=== PATIENT | female | born 1980 | race Caucasian/White ===

== ENCOUNTER 2018-04-26 08:36 | Emergency (ER) | payer OTHER ==
[~2018-04-26] VITALS: Ht 170.2 cm; Wt 104.0 kg
[2018-04-26 08:40] VITALS: BP 114/79
--- NOTE | 2018-04-26 11:03 | NUR ---
FROM LOBBY TO ROOM
--- NOTE | 2018-04-26 11:15 | NUR ---
PT TO ED WITH R ANKLE SWELLING AFTER ROLLING ANKLE THIS AM. NEURO INTACT. CAN WIGGLE TOES AND MOVE FOOT. PAIN WITH MOVEMENT. CONNECTED TO MONITORS. VSS. MOTHER AT BEDSIDE. PT RESTING IN BED. AWAITING MD ASSESSMENT.
[2018-04-26] MEDS ORDERED: KETOROLAC 30 MG/1 ML ONE (11:34)
[2018-04-26] MEDS ORDERED: ACETAMINOPHEN 500 MG TABLET ONE (11:35)
[2018-04-26] MEDS ORDERED: ACETAMINOPHEN 500 MG TABLET PO ONE (12:00)
[2018-04-26] MEDS ORDERED: KETOROLAC 30 MG/1 ML IM ONE (12:00)
== END 2018-04-26 12:24 | disposition home or self-care (01) ==
LOC: ED 11:06
DX: S93.491A Sprain of other ligament of right ankle, initial encounter (principal); S93.621A Sprain of tarsometatarsal ligament of right foot, initial encounter; X50.1XXA Overexertion from prolonged static or awkward postures, initial encounter; Y93.89 Activity, other specified; Y92.009 Unspecified place in unspecified non-institutional (private) residence as the place of occurrence of the external cause; Y99.8 Other external cause status
CPT/HCPCS: 73610; 73630; 96372; 99284; J1885